=== PATIENT | male | born 1955 ===

== ENCOUNTER 2017-10-09 12:00 | Inpatient (IN) ==
[2017-10-02 16:16] LABS: Appearance,Urine CLEAR; Bilirubin,Urine NEG (NEG); Color,Urine STRAW; Glucose,Urine (UA) NEGATIVE (NEG); Leukocyte Esterase,Urine NEG /uL (NEG); Nitrate,Urine NEG (NEG); Protein,Urine NEG (NEG); Specific Gravity,Urine 1.006 (1.000-1.035); Urine Blood NEG mg/dL (<0.03); Urobilinogen,Urine NEG (NEG)
[2017-10-02 16:19] LABS: Blood Urea Nitrogen 13 mg/dl (6-20)
[2017-10-02 16:33] LABS: Basophils # (Auto) 0.1 K/mcL (0.0-0.3); Basophils % (Auto) 1.6 % (0.0-2.0); Eosinophils # (Auto) 0.2 K/mcL (0.0-0.7); Eosinophils % (Auto) 4.1 % (0.0-7.0); Granulocytes % (Auto) 58.8 % (38.0-78.0); Lymphocytes # (Auto) 1.1 K/mcL (1.5-4.8); Lymphocytes % (Auto) 29.1 % (15.5-49.0); Mean Cell Volume 90.3 fL (80.0-100.0); Mean Corpuscular HGB Conc 34.1 g/dL (31.0-36.0); Mean Corpuscular Hemoglobin 30.7 pg (26.0-34.0); Monocytes # (Auto) 0.2 K/mcL (0.1-0.9); Monocytes % (Auto) 6.4 % (1.0-12.0); Platelet Count 260 K/mcL (140-440); RBC 4.84 M/mcL (4.50-5.90); Red Cell Distribution Width 13.1 % (11.5-14.5)
[~2017-10-09 12:00] MED LIST: ACETAMINOPHEN 500 MG TABLET PO SCH; CELECOXIB 200 MG CAPSULE PO SCH; KETOROLAC 30 MG, ROPIVACAINE HCL/PF 49.5 ML, EPINEPHrine 0.5 MG, 0.9 % SODIUM CHLORIDE ... IJ ONE; PREGABALIN 75 MG CAPSULE PO SCH; ceFAZolin 1 GM VIAL IV SCH; oxyCODONE 10 MG TAB.ER.12H PO SCH
[2017-10-09] MEDS ORDERED: HYDROcodone/APAP 10/325MG TABLET PO PRN (13:22)
[2017-10-09] MEDS ORDERED: ACETAMINOPHEN 325 MG TABLET PO PRN (13:22)
[2017-10-09] MEDS ORDERED: MAGNESIUM HYDROXIDE 30 ML ORAL.SUSP PO PRN (13:22)
[2017-10-09] MEDS ORDERED: TRANEXAMIC ACID 1,000 MG/10 ML VIAL IV SCH (13:22)
[2017-10-09] MEDS ORDERED: BISACODYL 10 MG SUPP.RECT PR PRN (13:22)
[2017-10-09] MEDS ORDERED: HYDROmorphone 2 MG/ML SYRINGE IV PRN (13:22)
[2017-10-09] MEDS ORDERED: POLYETHYLENE GLYCOL 3350 17 GM PACKET PO PRN (13:22)
[2017-10-09] MEDS ORDERED: FLEETS ADULT ENEMA PR PRN (13:22)
[2017-10-09] MEDS ORDERED: ONDANSETRON 4 MG/2 ML VIAL IV PRN ×2 (13:22→14:51)
[2017-10-09] MEDS ORDERED: BENZOCAINE/MENTHOL 1 LOZENGE PO PRN ×2 (13:22→14:51)
[2017-10-09] MEDS ORDERED: DEXAMETHASONE 10 MG/ML VIAL IV ONE (13:30)
[2017-10-09] MEDS ORDERED: ONDANSETRON 4 MG/2 ML VIAL IV ONE (13:30)
[2017-10-09] MEDS ORDERED: PROPOFOL 200 MG/20 ML VIAL IV ONE (13:30)
[2017-10-09] MEDS ORDERED: ROPIVACAINE HCL/PF 20 ML VIAL IJ ONE (13:30)
[2017-10-09] MEDS ORDERED: LIDOCAINE HCL/PF 100 MG/5 ML SYRINGE IV ONE (13:30)
[2017-10-09] MEDS ORDERED: ePHEDrine 50 MG/ML AMPUL IV ONE (13:30)
[2017-10-09] MEDS ORDERED: TRANEXAMIC ACID 1,000 MG/10 ML VIAL IV ONE (13:30)
[2017-10-09] MEDS ORDERED: MIDAZOLAM 5 MG/5 ML VIAL IV ONE (13:30)
[2017-10-09] MEDS ORDERED: GENTAMICIN SULFATE 800 MG/20 ML VIAL IR ONE (13:46)
[2017-10-09] MEDS ORDERED: LACTATED RINGERS 250 ML IV PRN (14:51)
[2017-10-09] MEDS ORDERED: MEPERIDINE 25 MG/ML SYRINGE IV PRN (14:51)
[2017-10-09] MEDS ORDERED: PROMETHAZINE 25 MG/ML VIAL IV PRN (14:51)
[2017-10-09] MEDS ORDERED: IPRATROPIUM/ALBUTEROL 3 ML AMPUL.NEB NEB PRN (14:51)
[2017-10-09] MEDS ORDERED: ACETAMINOPHEN 1,000 MG/100 ML BOTTLE IV ONE (14:51)
[2017-10-09] MEDS ORDERED: diphenhydrAMINE 50 MG/ML VIAL IV PRN (14:51)
[2017-10-09] MEDS ORDERED: FLUMAZENIL 0.1 MG/ML ML IV PRN (14:51)
[2017-10-09] MEDS ORDERED: NALOXONE HCL 0.4 MG/ML VIAL IV PRN (14:51)
[2017-10-09] MEDS ORDERED: LACTATED RINGERS 1,000 ML IV SCH (15:00)
--- NOTE | 2017-10-09 15:52 | Brief Operative Note ---
Date of procedure: 10/09/17 Pre-op diagnosis: Right knee loose femoral comp Post-op diagnosis: same Procedure: Right knee revision both comp Grafts/Implants: Yes Anesthesia: GETA Complications: none Complications Description: 10/09/17 15:51 none Surgeon: Adrien Ellis Senior Materials Planner: Kiet Ingram Estimated blood loss (cc): 50 Tourniquet Time (Minutes): 73 Specimens Removed/Pathology: none sent Condition: stable Disposition: PACU
--- NOTE | 2017-10-09 15:59 | XRay Report ---
HISTORY: Reason for Exam:Post-Op Total Knee FINDINGS: There is a well positioned total knee prosthesis. No fracture is present. There is gas in the joint due to the surgical procedure. The previously seen medial hemiarthroplasty has been removed. IMPRESSION: Well-positioned right knee prosthesis Interpreted and Authenticated by: Richard Prasad 10/09/17
[2017-10-09] MEDS: 0.45 % SODIUM CHLORIDE 1,000 ML IV SCH (16:31)
[2017-10-09] MEDS: 0.9 % SODIUM CHLORIDE 10 ML SYRINGE IV SCH ×2 (16:32→22:42)
[2017-10-09] MEDS: KETOROLAC 15 MG/ML VIAL IV SCH (18:11)
[2017-10-09] MEDS: ceFAZolin 1 GM VIAL IV SCH (20:26)
[2017-10-09] MEDS: ASPIRIN 325 MG ENTERIC COATED TABLET PO SCH (20:26)
[2017-10-09] MEDS: DOCUSATE SODIUM 100 MG CAPSULE PO SCH (20:26)
[2017-10-09] MEDS: oxyCODONE 10 MG TAB.ER.12H PO SCH (20:29)
[2017-10-09] MEDS ORDERED: Melatonin [Melatonin] 5 MG Tablet PO SCH (21:00)
[2017-10-09] MEDS ORDERED: SENNOSIDES 1 TABLET PO SCH (21:00)
[2017-10-09] MEDS ORDERED: TEMAZEPAM 15 MG CAPSULE PO PRN (21:00)
[2017-10-10] MEDS: KETOROLAC 15 MG/ML VIAL IV SCH ×3 (00:06→12:57)
[2017-10-10] MEDS ORDERED: diphenhydrAMINE 25 MG CAPSULE PO PRN (00:17)
[2017-10-10] MEDS: oxyCODONE 10 MG TAB.ER.12H PO SCH ×2 (00:27→09:30)
[2017-10-10] MEDS ORDERED: diphenhydrAMINE 25 MG CAPSULE ONE (00:33)
[2017-10-10] MEDS: 0.45 % SODIUM CHLORIDE 1,000 ML IV SCH ×2 (01:39→10:04)
[2017-10-10] MEDS: ceFAZolin 1 GM VIAL IV SCH (04:19)
[2017-10-10] MEDS: 0.9 % SODIUM CHLORIDE 10 ML SYRINGE IV SCH (04:36)
[2017-10-10] MEDS ORDERED: LEVOTHYROXINE 100 MCG TABLET PO SCH (07:30)
--- NOTE | 2017-10-10 07:45 | Orthopedic Progress Note ---
Subjective Patient information: Note initiated : 10/10/17 at 7:44 am Service Date, if different from initiated Date: [] Patient: Panfilo Rey 62 y/o M admitted on 10/09/17 for Right Partial Revision Poss Total Knee Arthroplaty. Chief Complaint: [Pt is stable this morning on post operative day 1 without any significant concerns or complaints. Patients vital signs have remained stable. Patients dressing is dry and exhibits a grossly intact neurovascular and neuromotor exam. Patients 10 point ROS is otherwise negative. ] Objective Vital signs: Vital Signs Temp Pulse Resp BP Pulse Ox 10/10/17 07:23 97 10/10/17 07:16 97.9 F 20 117/66 97 10/10/17 03:01 97.8 F 90 20 143/84 95 10/10/17 03:00 95 10/10/17 00:00 97.5 F 91 H 20 131/82 93 10/09/17 21:00 93 10/09/17 20:00 93 10/09/17 19:58 98.0 F 99 H 20 142/85 93 10/09/17 17:48 98 F 18 154/91 92 10/09/17 17:30 140/82 94 10/09/17 17:22 92 10/09/17 17:00 157/91 96 10/09/17 16:45 154/91 98 10/09/17 16:30 180/80 93 10/09/17 16:15 154/83 95 10/09/17 16:03 97.4 F 86 14 132/76 98 10/09/17 15:58 92 H 15 124/75 100 10/09/17 15:53 82 18 106/68 100 10/09/17 15:48 80 20 107/66 99 10/09/17 15:43 76 16 101/64 98 10/09/17 15:38 77 19 98/64 98 10/09/17 15:33 97.2 F 76 19 101/61 98 10/09/17 12:21 97.5 F 18 161/92 96 10/09/17 12:00 97.5 F 18 161/92 96 Intake and Output 10/09/17 10/10/17 10/10/17 21:59 05:59 13:59 Intake Total 3020 / 3020 1170 / 1170 Output Total 852 / 852 1900 / 1900 400 / 400 Balance 2168 / 2168 -730 / -730 -400 / -400 Intake: IV 2300 / 2300 Oral 720 / 720 1170 / 1170 Output: Void Amount 750 / 750 1900 / 1900 400 / 400 Straight 350 / 350 # of times incontinent of urine 2 / 2 Estimated Blood Loss 100 / 100 Other: # Voids 1 1 1 Weight 215 lb Intake & Output: Intake & Output 10/09/17 10/10/17 10/10/17 21:59 05:59 13:59 Intake Total 3020 / 3020 1170 / 1170 Output Total 852 / 852 1900 / 1900 400 / 400 Balance 2168 / 2168 -730 / -730 -400 / -400 Weight 215 lb Intake: IV 2300 / 2300 Oral 720 / 720 1170 / 1170 Output: Void Amount 750 / 750 1900 / 1900 400 / 400 Straight 350 / 350 # of times incontinent of urine 2 / 2 Estimated Blood Loss 100 / 100 Other: # Voids 1 1 1 Incision: Yes healing Incision clean and dry: Yes Dressing: Yes clean, Yes dry Weight bearing status: full Neurological exam IM: Yes oriented X3, Yes motor sensory intact, Yes neurovascular intact Extremities exam IM: Yes Foot pink and warm, Yes neurovascular intact - Labs CBC & BMP: 10/10/17 04:59 10/02/17 14:24 Labs: Orthopedic Labs 10/02/17 14:24 PT 13.2 INR 1.0 APTT 29 10/10/17 10/02/17 04:59 14:24 Hgb 14.9 Hct 39.4 L 43.7 Assessment and Plan (1) Hx of total knee arthroplasty The patient has been educated regarding dressing care, Physical Therapy recommendations, home exercises, restrictions, and follow up appointments. The patient has had all necessary DME prescribed. The patient has remained stable during their hospital course. The patient was discharge with a stable exam. Status: Acute
--- NOTE | 2017-10-10 07:48 | Discharge Summary ---
Ortho Discharge - TKA - Patient Instructions Diet: Regular Diet Activity: activity as tolerated, weight bearing as tolerated Total Knee Protocol: For Total Knee: Start ROM PATRICK with stationary bike or rocking chair. Work on gaining full extension of knee. Posterior dislocation precautions provided. Hip abductor strengthening and gait training instructions provided. Apply Cryocuff as instructed. Dressing Care: May shower in 3 days, Aquacel Ag - leave on for 5 days Patient Education: Total Knee Replacement (DC) Additional Instructions: CPM for home use. - Problem Maintenance (1) Hx of total knee arthroplasty Status: Acute - Follow Up Plan Follow Up Appointments: Adrien Ellis MD [Physician] - 10/24/17 10:40 am Disposition: Home, Self-Care Prognosis: Good Rehab Potential: Good I certify that the patient requires SNF services: No Overall status at discharge: patient is progressing back to baseline - Orders For Discharge Prescriptions: Aspirin [Ecotrin] 325 mg PO BID #60 tab.ec Docusate Sodium [Colace] 100 mg PO BID #60 cap morphine [Ms Contin] 15 mg PO Q8HP PRN #60 tab.sr.12h PRN Reason: Pain oxyCODONE [Oxycontin] 10 mg PO BID #30 tab.er.12h Additional Discharge Orders: Physical Therapy at Discharge - TKA Location: Determined By Patient CPM Discharge Order Location: Determined By Patient Toilet Riser Discharge Order Location: Determined By Patient Walker Location: Determined By Patient
--- NOTE | 2017-10-10 08:29 | Operative Note ---
DATE OF OPERATION: 10/09/2017 PREOPERATIVE DIAGNOSIS: Right painful partial knee with loose femoral component. POSTOPERATIVE DIAGNOSIS: Right painful partial knee with loose femoral component. PROCEDURE: Right knee revision to total knee arthroplasty. SURGEON: Adrien Ellis MD PILE OPERATOR: Kiet Ingram PA-C ANESTHESIA: General LMA anesthesia. COMPLICATIONS: None. PATHOLOGY: We did send a soft tissue sample for high powered field with no signs of infection. DESCRIPTION OF PROCEDURE: The patient was brought to the operating room and put to sleep with general LMA anesthesia. Once asleep, the patient had the right leg sterilely prepped and draped in the usual sterile fashion. Once done, we confirmed this as the operative site. A midline incision was made, mid vastus approach performed after confirming the operative site. The tourniquet was inflated to 250 pounds of pressure. We then exposed the joint. There was no sign of infection or purulence. There was quite a bit of wear underneath the patella, medial facet, intact ACL and PCL. The tibial component was completely stable. The femoral component appeared to be stable until we tapped it three times with an osteotome and it seemed to loosen fairly quickly. With this we inspected the holes. This seemed to have enlarged holes indicating some chronic loosening. We then set pathology for soft tissue from the anterior compartment. We irrigated thoroughly and removed the components, both the tibial and the femoral components. We brought in the robot, placed pins above and below the knee and registered intra-articular pins. We registered 20 to 30 points on the femur and tibia, balanced the knee both at 15 and 90 degrees. Once balanced and component positioned, we then brought in the robot and made our bony cuts. Once the bony cuts were made we removed the remnants of the meniscus, irrigated thoroughly and then tapped into place a size 6 tibial component, size 6 femoral component. A 9 and 11 poly were trialed. Both gained full extension and the 11 seemed to bleed the most appropriate through range of motion. We irrigated thoroughly. We then prepared the patella measuring 25 mm cut to 15 mm total thickness and then placed eccentric 38 mm patellar button. This tracked very well. We irrigated thoroughly and cemented into place the above-mentioned components with antibiotic impregnated cement with a 50 mm stem for extra stability. We kept the knee at 45 degrees. Bone cement was removed. We irrigated again and did a second inspection. Once this was done, we injected the soft tissues around the knee with the post-injection formula and closed the mid vastus approach with #1 x2 sutures. These were run medially both starting infrapatellar and then starting above and going down. These interlocked and seemed to give excellent support. We took the knee through the range of motion-very stable. We irrigated thoroughly, closed the skin with 2-0 Vicryl and adhesive closure. The patient tolerated this well without complication. RBH:ovi Job ID: [id number] Doc ID: [id number] Adrien Ellis MD
[2017-10-10] MEDS ORDERED: VENLAFAXINE 150 MG CAP.XL.24H PO SCH (09:00)
[2017-10-10] MEDS: ASPIRIN 325 MG ENTERIC COATED TABLET PO SCH (09:30)
[2017-10-10] MEDS: DOCUSATE SODIUM 100 MG CAPSULE PO SCH (09:30)
[2017-10-10] MEDS ORDERED: morphine 15 MG TAB.SR.12H PO PRN (09:30)
--- NOTE | 2017-10-10 13:15 | Surgical Pathology Report ---
HISTOLOGY SPECIMEN MICROSCOPIC DIAGNOSIS SOFT TISSUE, RIGHT KNEE, ANTERIOR POUCH, BIOPSY: -- FIBROTIC SYNOVIUM WITH ASSOCIATED CHRONIC INFLAMMATION. -- NO SIGNIFICANT NEUTROPHILIC INFLAMMATION IDENTIFIED. (DMT:romina) INTRAOPERATIVE CONSULTATION FROZEN SECTION DIAGNOSIS (Performed at [facility], [place], [place]) FSA - SOFT TISSUE, RIGHT KNEE ANTERIOR POUCH, BIOPSY: -- 0-1 NEUTROPHILS/hpf. (RLF:sln) GROSS DESCRIPTION Received fresh for intraoperative consultation, labeled right knee anterior pouch soft tissue, is a fragment of variegated white-dillard to yellow-dillard rubbery soft tissue that measures 2 x 1.5 x 0.7 cm. Frozen section is performed. Tube Room Supervisor sections in one cassette. (RLF:sln) Electronically Signed by: Francis Dhaliwal M.D.
== END 2017-10-10 14:35 | disposition home or self-care (01) | DRG 468 ==
LOC: MEDSUR 12:00
PROVIDERS: ADMIT Orthopaedic Surgery; ATTEND Orthopaedic Surgery